=== PATIENT | male | born 1960 | race Two or more races ===

== ENCOUNTER 2017-08-10 08:58 | Outpatient (CLI) | payer OTHER ==
[~2017-08-10] VITALS: Ht 167.6 cm; Wt 93.0 kg
== END 2017-08-10 09:15 | disposition home or self-care (01) ==
LOC: OFIC 805 08:58
DX: H90.41 Sensorineural hearing loss, unilateral, right ear, with unrestricted hearing on the contralateral side (principal)

== ENCOUNTER 2017-08-17 08:35 | Outpatient (CLI) | payer OTHER ==
[~2017-08-17] VITALS: Ht 152.4 cm; Wt 93.0 kg
== END 2017-08-17 08:50 | disposition home or self-care (01) ==
LOC: OFIC 805 08:35
DX: H91.8X1 Other specified hearing loss, right ear (principal)

== ENCOUNTER 2017-09-14 08:17 | Outpatient (CLI) | payer OTHER ==
[~2017-09-14] VITALS: Ht 152.4 cm; Wt 93.0 kg
== END 2017-09-14 08:35 | disposition home or self-care (01) ==
LOC: OFIC 805 08:17
DX: H91.8X1 Other specified hearing loss, right ear (principal); J30.89 Other allergic rhinitis; H61.23 Impacted cerumen, bilateral; H93.8X3 Other specified disorders of ear, bilateral

== ENCOUNTER 2017-10-26 08:28 | Outpatient (CLI) | payer OTHER ==
[~2017-10-26] VITALS: Ht 152.4 cm; Wt 93.0 kg
== END 2017-10-26 08:45 | disposition home or self-care (01) ==
LOC: OFIC 805 08:28
DX: H61.23 Impacted cerumen, bilateral (principal); J30.89 Other allergic rhinitis

== ENCOUNTER 2017-12-21 14:41 | Outpatient (CLI) | payer OTHER | END 2017-12-21 16:50 | disposition home or self-care (01) | LOC: RAD 14:41 | DX: I11.9 Hypertensive heart disease without heart failure (principal) ==

== ENCOUNTER 2018-01-27 07:45 | Outpatient (CLI) | payer OTHER ==
[~2018-01-27] VITALS: Ht 152.4 cm; Wt 93.0 kg
== END 2018-01-27 08:00 | disposition home or self-care (01) ==
LOC: OFIC 805 07:45
DX: H61.23 Impacted cerumen, bilateral (principal); J30.89 Other allergic rhinitis; H90.3 Sensorineural hearing loss, bilateral

== ENCOUNTER 2018-05-19 11:24 | Outpatient (CLI) | payer OTHER ==
[~2018-05-19] VITALS: Ht 152.4 cm; Wt 90.7 kg
== END 2018-05-19 11:40 | disposition home or self-care (01) ==
LOC: OFIC 805 11:24
DX: H93.90 Unspecified disorder of ear, unspecified ear (principal); J31.0 Chronic rhinitis; H61.23 Impacted cerumen, bilateral

== ENCOUNTER 2018-06-23 10:05 | Outpatient (CLI) | payer OTHER ==
[~2018-06-23] VITALS: Ht 152.4 cm; Wt 90.7 kg
== END 2018-06-23 15:55 | disposition home or self-care (01) ==
LOC: OFIC 805 10:05
DX: H61.23 Impacted cerumen, bilateral (principal); J30.89 Other allergic rhinitis; J03.80 Acute tonsillitis due to other specified organisms

== ENCOUNTER → 2018-10-28 | Outpatient (CLI) | payer OTHER | END | disposition home or self-care (01) | LOC: SONOGRAMA 09:21 | DX: N40.0 Benign prostatic hyperplasia without lower urinary tract symptoms (principal); R31.1 Benign essential microscopic hematuria ==

== ENCOUNTER 2018-11-23 09:09 | Outpatient (CLI) | payer OTHER | END 2018-11-23 15:00 | disposition home or self-care (01) | LOC: SONOGRAMA 09:09 | DX: M79.672 Pain in left foot (principal) ==

== ENCOUNTER 2020-01-17 09:27 | Outpatient (CLI) | payer OTHER | END 2020-01-17 14:37 | disposition home or self-care (01) | LOC: RAD 09:27 | PROVIDERS: ATTEND Internal Medicine Geriatric Medicine | DX: G32.0 Subacute combined degeneration of spinal cord in diseases classified elsewhere (principal); R06.02 Shortness of breath; I11.9 Hypertensive heart disease without heart failure ==

== ENCOUNTER → 2020-03-04 | Outpatient (CLI) | payer OTHER | END | disposition home or self-care (01) | LOC: LAB 18:44 | PROVIDERS: ATTEND Urology | DX: R97.20 Elevated prostate specific antigen [PSA] (principal) ==

== ENCOUNTER 2020-04-17 07:42 | Outpatient (CLI) | payer OTHER | END 2020-04-17 19:04 | disposition home or self-care (01) | LOC: SONOGRAMA 07:42 | PROVIDERS: ATTEND Urology | DX: C61 Malignant neoplasm of prostate (principal); R97.20 Elevated prostate specific antigen [PSA] ==

== ENCOUNTER → 2020-07-30 | Outpatient (CLI) | payer OTHER | END | disposition home or self-care (01) | LOC: TOM 07-29 14:50 | PROVIDERS: ATTEND Urology | DX: C61 Malignant neoplasm of prostate (principal); R31.1 Benign essential microscopic hematuria ==

== ENCOUNTER 2020-10-25 22:35 | Emergency (ER) | payer OTHER ==
[~2020-10-25] VITALS: Ht 170.2 cm; Wt 89.8 kg
[2020-10-25] MEDS ORDERED: CANDESARTAN-HC1 EAC2 PO (23:02)
[2020-10-25] MEDS ORDERED: VYTORIN 10-201 EACH PO (23:03)
[2020-10-25] MEDS ORDERED: ULORIC80 MG PO (23:03)
== END 2020-10-26 00:54 | disposition home or self-care (01) ==
LOC: ER 22:35
DX: N35.819 Other urethral stricture, male, unspecified site (principal); R33.8 Other retention of urine

== ENCOUNTER 2021-05-09 12:41 | Outpatient (CLI) | payer OTHER ==
[~2021-05-09 12:41] MED LIST: CANDESARTAN-HC1 EAC2 PO; ULORIC80 MG PO; VYTORIN 10-201 EACH PO
== END 2021-05-09 15:58 | disposition home or self-care (01) ==
LOC: RAD 12:41
PROVIDERS: ATTEND Radiology Diagnostic Radiology
DX: R05.2 Subacute cough (principal)

== ENCOUNTER 2021-07-18 08:00 | Outpatient (CLI) | payer OTHER | END 2021-07-18 08:30 | disposition home or self-care (01) | LOC: PPH VACUNA 08:00 | PROVIDERS: ATTEND Emergency Medicine Pediatric Emergency Medicine | DX: Z23 Encounter for immunization (principal) ==

== ENCOUNTER 2022-04-28 09:47 | Outpatient (CLI) | payer OTHER | END 2022-04-28 09:50 | disposition home or self-care (01) | LOC: RAD 09:47 | PROVIDERS: ATTEND Radiology Diagnostic Radiology | DX: R05.8 Other specified cough (principal) ==

== ENCOUNTER 2022-05-04 08:39 | Outpatient (CLI) | payer OTHER | END 2022-05-04 09:00 | disposition home or self-care (01) | LOC: SONOGRAMA 08:39 | PROVIDERS: ATTEND Urology | DX: R31.1 Benign essential microscopic hematuria (principal); N20.0 Calculus of kidney ==

== ENCOUNTER 2022-08-06 14:05 | Outpatient (CLI) | payer OTHER | END 2022-08-06 14:25 | disposition home or self-care (01) | LOC: RAD 14:05 | PROVIDERS: ATTEND Internal Medicine Rheumatology | DX: M19.041 Primary osteoarthritis, right hand (principal); M19.042 Primary osteoarthritis, left hand; M25.531 Pain in right wrist ==

== ENCOUNTER 2024-05-02 06:46 | Outpatient (CLI) | payer OTHER | END 2024-05-02 07:00 | disposition home or self-care (01) | LOC: SONOGRAMA 06:46 | PROVIDERS: ATTEND Internal Medicine Nephrology | DX: N18.2 Chronic kidney disease, stage 2 (mild) (principal); N40.0 Benign prostatic hyperplasia without lower urinary tract symptoms ==

== ENCOUNTER 2025-02-14 06:25 | Outpatient (CLI) | payer OTHER | END 2025-02-14 08:14 | disposition home or self-care (01) | LOC: SONOGRAMA 06:25 | PROVIDERS: ATTEND General Practice | DX: R10.0 Acute abdomen (principal) ==